=== PATIENT | female | born 1975 | race Two or more races ===

== ENCOUNTER 2025-07-23 08:20 | Day surgery (SDC) | payer OTHER, SELFPAY ==
[2025-07-23] VITALS (9 sets, daily range): BP systolic 120–208; BP diastolic 85–109; PULSE 63–87; RESP 13–23; TEMP 36.4–37.2; O2SAT 93–98; BMI 43.1
[2025-07-23] MEDS: SODIUM CHLORIDE 0.9% 500 ML 500 ML 20 ML IV (09:59)
[2025-07-23] MEDS: fentaNYL CIT INJ 50 mCg/ML AMP 2ML (ASD USE ONLY) IVP (10:06)
[2025-07-23] MEDS: MIDAZOLAM INJ 1 MG/ML VIAL 2 ML 2 MG IVP (10:06)
== END 2025-07-23 10:45 | disposition home or self-care (01) ==
PROVIDERS: PCP Family Medicine; Referring Provider Specialist; Visit Provider Specialist
PROC: 0DBE8ZX Excision of Large Intestine, Via Natural or Artificial Opening Endoscopic, Diagnostic (ICD-10-PCS; CPT 45380; principal; 2025-07-23 09:30)
DX: Z12.11 Encounter for screening for malignant neoplasm of colon (principal); K64.9 Unspecified hemorrhoids; K57.30 Diverticulosis of large intestine without perforation or abscess without bleeding
CPT/HCPCS: 45378; 81025; A4649; J1200; J2250; J3010; J7999